=== PATIENT | male | born 1995 | race African-American/Black ===

== ENCOUNTER 2023-04-14 13:40 | Emergency (ER) | payer OTHER ==
[~2023-04-14] VITALS: Ht 190.5 cm; Wt 78.7 kg
[2023-04-14 13:58] VITALS: BP 136/76; PULSE 88; RESP 17; O2SAT 98
== END 2023-04-14 18:15 | disposition left against medical advice (07) ==
LOC: ER 13:40
DX: M25.512 Pain in left shoulder (principal); M54.59 Other low back pain; Z53.21 Procedure and treatment not carried out due to patient leaving prior to being seen by health care provider; V89.2XXA Person injured in unspecified motor-vehicle accident, traffic, initial encounter; Y93.89 Activity, other specified; Y92.89 Other specified places as the place of occurrence of the external cause; Y99.8 Other external cause status